=== PATIENT | female | born 1970 | race Caucasian/White ===

== ENCOUNTER 2025-02-13 06:26 | Day surgery (SDC) | payer BC, OTHER ==
[2025-02-13] MEDS: Lactated Ringers 1,000 ML IV SCH (06:45)
[2025-02-13] MEDS ORDERED: Propofol 200 MG/20 ML SDV ONE ×2 (07:14→07:47)
[2025-02-13] MEDS ORDERED: fentaNYL 100 MCG/2 ML SDV ONE (07:14)
[2025-02-13] MEDS ORDERED: Midazolam 1 MG/ML 2 ML SDV ONE (07:14)
== END 2025-02-13 09:24 | disposition home or self-care (01) ==
LOC: JP.SDS 06:26
PROVIDERS: ATTEND Family Medicine
DX: Z12.11 Encounter for screening for malignant neoplasm of colon (principal); I10 Essential (primary) hypertension; E66.9 Obesity, unspecified; Z91.013 Allergy to seafood; Z88.8 Allergy status to other drugs, medicaments and biological substances
CPT/HCPCS: 45378; 81025; J2250; J2704; J3010; J7120